=== PATIENT | female | born 1970 | race Caucasian/White ===

== ENCOUNTER → 2021-04-30 | Outpatient (CLI) | payer OTHER ==
[~2021-04-30] MED LIST: ALBUTEROL INHALER INH; ANTIVERT 12.512.5 MG PO; CELEXA40 MG PO; CLARITIN10 M2 PO; FLEXERIL 10 MG10 MG PO; GLUCOPHAGE 500500 MG PO; LASIX20 MG PO; LIPITOR TAB 2020 MG PO; LISINOPRIL10 MG PO; LISINOPRIL20 MG PO; MEDROL DOSEPAK 24 MG PO; NEURONTIN 400400 MG PO; NEURONTIN400 MG PO; PERCOCET 10-321 EACH PO; POTASSIUM CHLO20 ME1 PO; SINGULAIR10 MG PO; SYNTHROID200 MCG PO; TRAZODONE HCL100 MG PO; VALTREX1000 MG PO; VOLTAREN100 GM TOP; ZOFRAN ODT 4 MG4 MG PO
== END ==
LOC: KOH-I 04-20 14:00
DX: F17.211 Nicotine dependence, cigarettes, in remission (principal)
CPT/HCPCS: 71271

== ENCOUNTER 2021-06-11 21:14 | Inpatient (IN) | payer OTHER ==
[~2021-06-11] VITALS: Ht 165.1 cm; Wt 125.6 kg
[~2021-06-11 21:14] MED LIST changes: -LISINOPRIL10 MG PO; -NEURONTIN400 MG PO; -SINGULAIR10 MG PO; -TRAZODONE HCL100 MG PO
[2021-06-12] MEDS ORDERED: LISINOPRIL10 MG PO (00:11)
[2021-06-12] MEDS ORDERED: SINGULAIR10 MG PO (00:13)
[2021-06-12] MEDS ORDERED: NEURONTIN400 MG PO (00:13)
[2021-06-12] MEDS ORDERED: TRAZODONE HCL100 MG PO (00:19)
[2021-06-13 09:42] LABS: HEMOGLOBIN 12.6 gm/dl (12.3-15.3); RED BLOOD COUNT 4.05 M/UL (4.00-5.10); WHITE BLOOD COUNT 10.3 K/UL (4.5-11.0)
[2021-06-13 10:07] LABS: BUN/CREATININE RATIO 18 (0-10)
--- NOTE | 2021-06-14 02:38 | NUR ---
PT DIFFICULT TO AROUSE. ADMINISTERED NARCAN PER ORDER. DR SOLORIO ON UNIT TO SEE PATIENT. RECIEVED ORDERS. WILL CONTINUE TO MONITOR.
--- NOTE | 2021-06-14 05:20 | NUR ---
06/14/[address] SOLORIO THAT PT SATS WERE 82%. RESPIRATORY ON FLOOR. RECIEVED ORDER FOR NARCAN. RESPIRATORY COLLECTING ABG. WILL CONTINUE TO MONITOR.
--- NOTE | 2021-06-14 05:23 | NUR ---
06/14/2021 0433. ADMINISTERED NARCAN ORDERED. DR SOLORIO ON FLOOR TO SEE PT. NOTIFIED LUIS ([employer]) OF SITUATION AND NEED OF ICU BED. WILL CONTINUE TO MONITOR.
--- NOTE | 2021-06-14 05:25 | NUR ---
06/14/2021 0445. PT TRANSFERRED TO ICU FOR INTUBATION PER DR SOLORIO'S ORDERS.
[2021-06-14 05:49] LABS: HEMOGLOBIN 13.5 gm/dl (12.3-15.3); RED BLOOD COUNT 4.35 M/UL (4.00-5.10)
[2021-06-14 06:14] LABS: BUN/CREATININE RATIO 19 (0-10)
[2021-06-15 06:09] LABS: HEMOGLOBIN 13.7 gm/dl (12.3-15.3); RED BLOOD COUNT 4.35 M/UL (4.00-5.10); WHITE BLOOD COUNT 17.4 K/UL (4.5-11.0)
[2021-06-15 17:00] LABS: RED BLOOD COUNT 4.73 M/UL (4.00-5.10)
[2021-06-15 17:02] LABS: WHITE BLOOD COUNT 23.3 K/UL (4.5-11.0)
--- NOTE | 2021-06-15 17:57 | NUR ---
1628 SEE CODE RECORD
[2021-06-15 18:03] LABS: BUN/CREATININE RATIO 20 (0-10)
[2021-06-15 19:03] LABS: BORDETELLA PARAPERTUSSIS Not Detected (Not Detectd); BORDETELLA PERTUSSIS Not Detected (Not Detectd); CHLAMYDIA PNEUMONIAE Not Detected (Not Detectd); CORONAVIRUS HKU1 Not Detected (Not Detectd); CORONAVIRUS NL63 Not Detected (Not Detectd); CORONAVIRUS OC43 Not Detected (Not Detectd); CORONOAVIRUS 229E Not Detected (Not Detectd); HUMAN METAPNEUMOVIRUS Not Detected (Not Detectd); HUMAN RHINOVIRUS/ENTEROVIRUS Not Detected (Not Detectd); INFLUENZA A Not Detected (Not Detectd); INFLUENZA B Not Detected (Not Detectd); MYCOPLASMA PNEUMONIAE Not Detected (Not Detectd); PARAINFLUENZA VIRUS 1 Not Detected (Not Detectd); PARAINFLUENZA VIRUS 2 Not Detected (Not Detectd); PARAINFLUENZA VIRUS 3 Not Detected (Not Detectd); PARAINFLUENZA VIRUS 4 Not Detected (Not Detectd); RESPIRATORY SYNCYTIAL VIRUS Not Detected (Not Detectd)
[2021-06-15 20:02] LABS: SARS-CoV-2 NOT DETECTED (Not Detectd)
[2021-06-16 04:52] LABS: HEMOGLOBIN 13.2 gm/dl (12.3-15.3); WHITE BLOOD COUNT 19.6 K/UL (4.5-11.0)
[2021-06-16 04:54] LABS: RED BLOOD COUNT 4.17 M/UL (4.00-5.10)
[2021-06-17 08:28] LABS: HEMOGLOBIN 11.6 gm/dl (12.3-15.3)
[2021-06-17 08:32] LABS: RED BLOOD COUNT 3.68 M/UL (4.00-5.10); WHITE BLOOD COUNT 13.6 K/UL (4.5-11.0)
[2021-06-17 09:12] LABS: BUN/CREATININE RATIO 22 (0-10)
[2021-06-19 15:15] LABS: ORGANISM ID Not indicated. (.); SPECIMEN SOURCE Urine (.); STREPTOCOCCUS PNEUMONIAE AG Negative (Negative)
== END 2021-06-17 12:25 | disposition short-term general hospital (02) | DRG 208 ==
LOC: M/S 21:14 → MED SURG 4 23:27 → CCU 06-14 04:45
PROVIDERS: Internal Medicine; Internal Medicine Infectious Disease; ADMIT Internal Medicine
PROC: 0BH17EZ Insertion of Endotracheal Airway into Trachea, Via Natural or Artificial Opening (ICD-10-PCS; 2021-06-14)
PROC: 5A1945Z Respiratory Ventilation, 24-96 Consecutive Hours (ICD-10-PCS; 2021-06-14)
PROC: 5A09357 Assistance with Respiratory Ventilation, Less than 24 Consecutive Hours, Continuous Positive Airway Pressure (ICD-10-PCS; 2021-06-14)
PROC: 5A12012 Performance of Cardiac Output, Single, Manual (ICD-10-PCS; principal; 2021-06-15)
PROC: 06HY33Z Insertion of Infusion Device into Lower Vein, Percutaneous Approach (ICD-10-PCS; 2021-06-15)
PROC: 03HY32Z Insertion of Monitoring Device into Upper Artery, Percutaneous Approach (ICD-10-PCS; 2021-06-15)
PROC: 4A023N8 Measurement of Cardiac Sampling and Pressure, Bilateral, Percutaneous Approach (ICD-10-PCS; 2021-06-16)
PROC: B211YZZ Fluoroscopy of Multiple Coronary Arteries using Other Contrast (ICD-10-PCS; 2021-06-16)
PROC: 0DH67UZ Insertion of Feeding Device into Stomach, Via Natural or Artificial Opening (ICD-10-PCS; 2021-06-16)
PROC: 3E0G76Z Introduction of Nutritional Substance into Upper GI, Via Natural or Artificial Opening (ICD-10-PCS; 2021-06-16)
DX: J96.22 Acute and chronic respiratory failure with hypercapnia (principal); I21.4 Non-ST elevation (NSTEMI) myocardial infarction; I46.9 Cardiac arrest, cause unspecified; I50.23 Acute on chronic systolic (congestive) heart failure; I47.2 Ventricular tachycardia; E66.2 Morbid (severe) obesity with alveolar hypoventilation; I13.0 Hypertensive heart and chronic kidney disease with heart failure and stage 1 through stage 4 chronic kidney disease, or unspecified chronic kidney disease; F11.20 Opioid dependence, uncomplicated; T88.2XXA Shock due to anesthesia, initial encounter; J44.0 Chronic obstructive pulmonary disease with (acute) lower respiratory infection; J40 Bronchitis, not specified as acute or chronic; J44.9 Chronic obstructive pulmonary disease, unspecified; E11.22 Type 2 diabetes mellitus with diabetic chronic kidney disease; N18.9 Chronic kidney disease, unspecified; G57.93 Unspecified mononeuropathy of bilateral lower limbs; I16.0 Hypertensive urgency; J96.21 Acute and chronic respiratory failure with hypoxia; Z20.822 Contact with and (suspected) exposure to COVID-19; I25.10 Atherosclerotic heart disease of native coronary artery without angina pectoris; E03.9 Hypothyroidism, unspecified; E11.9 Type 2 diabetes mellitus without complications; G89.4 Chronic pain syndrome; F17.210 Nicotine dependence, cigarettes, uncomplicated; F41.9 Anxiety disorder, unspecified; E78.5 Hyperlipidemia, unspecified; E05.00 Thyrotoxicosis with diffuse goiter without thyrotoxic crisis or storm; R94.31 Abnormal electrocardiogram [ECG] [EKG]; E87.6 Hypokalemia; I95.9 Hypotension, unspecified; I25.5 Ischemic cardiomyopathy; Z90.49 Acquired absence of other specified parts of digestive tract; Z79.899 Other long term (current) drug therapy; Z82.49 Family history of ischemic heart disease and other diseases of the circulatory system; Z88.6 Allergy status to analgesic agent; Z68.37 Body mass index [BMI] 37.0-37.9, adult
CPT/HCPCS: ECHO; 31500; 36415; 36600; 71045; 80048; 80053; 82550; 82553; 82803; 82962; 83605; 83735; 83880; 84100; 84439; 84443; 84484; 85025; 85027; 85610; 85730; 86738; 87040; 87086; 87278; 87633; 87899; 93005; 93306; 93308; 94002; 94003; 94640; 94660; 94664; 94760; 96372; 96374; 96375; 96376; C1751; C1769; G0378; G0379; J0171; J0461; J0692; J1100; J1120; J1205; J1644; J1650; J1940; J2310; J2370; J2704; J2920; J3475; J3480; J7030; J7040; Q9967